=== PATIENT | female | born 1980 | race Caucasian/White ===

== ENCOUNTER 2017-07-22 14:00 | Outpatient (RCR) | payer BC | END 2017-07-28 | disposition home or self-care (01) | LOC: PTY 14:00 | DX: M76.61 Achilles tendinitis, right leg (principal); M76.62 Achilles tendinitis, left leg; M67.00 Short Achilles tendon (acquired), unspecified ankle ==

== ENCOUNTER 2017-08-05 15:00 | Outpatient (RCR) | payer BC | END 2017-08-28 | disposition home or self-care (01) | LOC: PTY 15:00 | DX: M76.61 Achilles tendinitis, right leg (principal); M76.62 Achilles tendinitis, left leg; M67.00 Short Achilles tendon (acquired), unspecified ankle ==